=== PATIENT | male | born 1940 | race Caucasian/White ===

== ENCOUNTER 2019-03-12 14:01 | Emergency (ER) | payer MEDICARE, BC ==
[2019-03-12] MEDS ORDERED: Sodium Chloride 0.9% 10 ML Syringe FLUSH PRN (14:21)
--- NOTE | 2019-03-12 14:33 | EDM.PDOC ---
ED HPI GENERAL MEDICAL PROBLEM - General Chief Complaint: Chest Pain Stated Complaint: SHORTNESS OF BREATH Time Seen by Provider: 03/12/19 14:15 Source of Information: Reports: Patient, RN Notes Reviewed History Limitations: Reports: No Limitations - History of Present Illness INITIAL COMMENTS - FREE TEXT/NARRATIVE: Patient is a 78-year-old male who presents to the ED for the evaluation of choice of breath and chest discomfort. The patient states that he has an extensive cardiac history that includes an TX roughly 3-4 years ago, a valve replacement roughly 15 years ago, and one stent placed 3 weeks ago. The stent was placed in [place]. The patient states that he normally has issues with not being able to get enough air in. But has characterized issues with increasing dyspnea with exertion. He has to take many sigh breaths to feel like he is getting his air. He states that he is not having chest pain somewhat , but more of a chest discomfort. He states that he is always been sore on the sternotomy incision. He does not think he has an updated med list at this time. He is not sure if he is on amiodarone or not. 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 He notes that he was supposed to have a follow-up appointment with the doctor that did the stent, however he was back in [place] and did not make it to the follow-up appointment. He denies any chronic lung issues, and states he was never a smoker. He states that he just feels more fatigued than he normally does. Chest Pain Score (Numeric/FACES): 2 - Related Data Allergies Allergy/AdvReac Type Severity Reaction Status Date / Time No Known Allergies Allergy Verified 08/26/16 18:09 Home Meds: Home Meds Aspirin [Halfprin] 81 mg PO DAILY 02/20/15 [History] Clopidogrel [Plavix] 75 mg PO DAILY 05/30/16 [History] Isosorbide Mononitrate [Imdur] 60 mg PO DAILY 05/30/16 [History] azaTHIOprine [Imuran] 50 mg PO Q2D 05/30/16 [History] levETIRAcetam [Levetiracetam] 750 mg PO BEDTIME 05/30/16 [History] Q-Best 100 1 tab PO DAILY 08/16/16 [History] Sertraline [Zoloft] 100 mg PO BEDTIME 08/16/16 [History] Ultra Vit 75 1 tab PO DAILY 08/16/16 [History] atorvaSTATin [Lipitor] 10 mg PO BEDTIME 08/16/16 [History] Acetaminophen/oxyCODONE [Percocet 325-5 MG] 1 - 2 tab PO Q4H PRN #60 tablet [Rx] Docusate Sodium/Sennosides [Senna Plus] 2 tab PO BID PRN #30 tablet 08/21/16 [Rx ] Ranolazine [Ranexa] 500 mg PO BID #60 tab.er 08/21/16 [Rx] Tamsulosin [Flomax] 0.4 mg PO BEDTIME 08/26/16 [History] Ampicillin 2 gm IV Q4H 14 Days adv 09/01/16 [Rx] Dronabinol [Marinol] 2.5 mg PO 0700,1100,1600 #21 cap 09/01/16 [Rx] Gentamicin 80 mg IV Q8H 14 Days vial 09/01/16 [Rx] Lidocaine 5% [Lidoderm 5%] 700 mg TRDERM DAILY@1100 #7 patch 09/01/16 [Rx] Past Medical History HEENT History: Reports: None Cardiovascular History: Reports: CAD, Heart Valve Replacement, Hypertension, [place] 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 Has had bone marrow bx in the past. - Infectious Disease History Infectious Disease History: Reports: C-Difficile, Chicken Pox, Hepatitis C, Hepatitis non A,B,C, Mumps - Past Surgical History Cardiovascular Surgical History: Reports: Coronary Artery Stent, Valve Replacement GI Surgical History: Reports: Colonoscopy Musculoskeletal Surgical History: Reports: Hip Replacement Social & Family History - Family History Family Medical History: Noncontributory Cardiac: Reports: [place] GI: Reports: Hepatitis Musculoskeletal: Reports: Other (See Below) Other Musculoskeletal Family History: brother has amputation. unsure why - Tobacco Use Smoking Status *Q: Never Smoker - Caffeine Use Caffeine Use: Reports: Coffee - Recreational Drug Use Recreational Drug Use: No - Living Situation & Occupation Living situation: Reports: with Significant Other Occupation: Retired ED ROS GENERAL - Review of Systems Review Of Systems: See Below Constitutional: Reports: Fatigue. Denies: Fever, Chills HEENT: Reports: No Symptoms Respiratory: Reports: Shortness of Breath. Denies: Wheezing Cardiovascular: Reports: Chest Pain (chest discomfort), Dyspnea on Exertion Endocrine: Reports: No Symptoms GI/Abdominal: Reports: No Symptoms : Reports: No Symptoms Musculoskeletal: Reports: No Symptoms Skin: Reports: No Symptoms Neurological: Reports: No Symptoms Psychiatric: Reports: No Symptoms Hematologic/Lymphatic: Reports: No Symptoms Immunologic: Reports: No Symptoms ED EXAM, GENERAL - Physical Exam Exam: See Below Exam Limited By: No Limitations General Appearance: Alert, WD/WN, No Apparent Distress Eye Exam: Bilateral Eye: Normal Inspection Ears: Normal External Exam Nose: Normal Inspection Throat/Mouth: Normal Inspection, Normal Lips, Normal Teeth, Normal Gums, Normal Oropharynx, Normal Voice, No Airway Compromise Head: Atraumatic, Normocephalic Neck: Normal Inspection Respiratory/Chest: No Respiratory Distress, Decreased Breath Sounds. No: Rhonchi, Wheezing Cardiovascular: Normal Peripheral Pulses, Regular Rate, Rhythm, No Edema, No JVD , Systolic Murmur GI/Abdominal: Normal Bowel Sounds, Soft, Non-Tender, No Distention, No Mass Extremities: Normal Inspection, Normal Capillary Refill Neurological: Alert, Oriented, Normal Cognition, No Motor/Sensory Deficits Psychiatric: Normal Affect, Normal Mood Skin Exam: Warm, Dry, Intact, Normal Color, No Rash EKG INTERPRETATION EKG Date: 03/12/19 Time: 14:23 Rhythm: Other (sinus evens) Rate (Beats/Min): 58 [place]: Normal P-Wave: Present QRS: Normal ST-T: Normal QT: Normal EKG Interpretation Comments: J-point elevation and Q waves in inferior leads. But no ischemic changes and no T wave inversions. This was reviewed by myself and Dr. Rutledge. Course - Vital Signs Last Recorded V/S: Last Vital Signs Temp 98.6 F 03/12/19 14:13 Pulse 60 03/12/19 14:13 Resp 20 03/12/19 14:13 BP 124/63 03/12/19 14:13 Pulse Ox 98 03/12/19 14:13 - Orders/Labs/Meds Orders: Active Orders 24 hr Category Date Time Status EKG Documentation Completion [RC] STAT Care 03/12/19 14:20 Active Peripheral IV Care [RC] . DIRECTED Care 03/12/19 14:21 Active Sodium Chloride 0.9% [Saline Flush] Med 03/12/19 14:21 Active 10 ml FLUSH ASDIRECTED PRN Peripheral IV Insertion Adult [OM.PC] Routine Oth 03/12/19 14:21 Ordered Medication Orders Sodium Chloride (Saline Flush) 10 ml FLUSH ASDIRECTED PRN PRN Reason: Keep Vein Open Last Admin: 03/12/19 15:00 Dose: 10 ml Labs: Laboratory Tests 03/12/19 03/12/19 03/12/19 Range/Units 14:35 14:35 14:35 WBC 5.07 (4.23-9.07) K/mm3 RBC 3.97 L (4.63-6.08) M/mm3 Hgb 11.6 L D (13.7-17.5) gm/L Hct 34.1 L (40.1-51.0) % MCV 85.9 (79.0-92.2) fl MCH 29.2 (25.7-32.2) pg MCHC 34.0 (32.2-35.5) g/dl RDW Std Deviation 42.2 (35.1-43.9) fL Plt Count 157 L (163-337) K/mm3 MPV 11.1 (9.4-12.3) fl Neutrophils % (Manual) 69 H (40-60) % Band Neutrophils % 0 (0-10) % Lymphocytes % (Manual) 21 (20-40) % Atypical Lymphs % 0 % Monocytes % (Manual) 4 (2-10) % Eosinophils % (Manual) 4 (0.8-7.0) % Basophils % (Manual) 2 H (0.2-1.2) Platelet Estimate Adequate Plt Morphology Comment Normal Hypochromasia 1+ slight Anisocytosis 1+ sligh RBC Morph Comment Not Reportable PT 10.9 (9.5-12.1) SECONDS INR 1.00 APTT 30 (24-31) SECONDS Sodium 138 (136-145) mEq/L Potassium 3.7 (3.5-5.1) mEq/L Chloride 105 (98-107) mEq/L Carbon Dioxide 22 (21-32) mEq/L Anion Gap 14.7 (5-15) BUN 17 (7-18) mg/dL Creatinine 1.1 (0.7-1.3) mg/dL Est Cr Clr Drug Dosing 58.07 mL/min Estimated GFR (MDRD) > 60 (>60) mL/min BUN/Creatinine Ratio 15.5 (14-18) Glucose 136 H (83-115) mg/dL Calcium 8.3 L (8.5-10.1) mg/dL Magnesium 1.7 L (1.8-2.4) mg/dl Total Bilirubin 0.3 (0.2-1.0) mg/dL AST 14 L (15-37) U/L ALT 17 (16-63) U/L Alkaline Phosphatase 84 (46-116) U/L Troponin I < 0.017 (0.00-0.056) ng/mL NT-Pro-B Natriuret Pep (0-450) pg/mL Total Protein 6.3 L (6.4-8.2) g/dl Albumin 3.2 L (3.4-5.0) g/dl Globulin 3.1 gm/dL Albumin/Globulin Ratio 1.0 (1-2) 03/12/19 Range/Units 14:35 WBC (4.23-9.07) K/mm3 RBC (4.63-6.08) M/mm3 Hgb (13.7-17.5) gm/L Hct (40.1-51.0) % MCV (79.0-92.2) fl MCH (25.7-32.2) pg MCHC (32.2-35.5) g/dl RDW Std Deviation (35.1-43.9) fL Plt Count (163-337) K/mm3 MPV (9.4-12.3) fl Neutrophils % (Manual) (40-60) % Band Neutrophils % (0-10) % Lymphocytes % (Manual) (20-40) % Atypical Lymphs % % Monocytes % (Manual) (2-10) % Eosinophils % (Manual) (0.8-7.0) % Basophils % (Manual) (0.2-1.2) Platelet Estimate Plt Morphology Comment Hypochromasia Anisocytosis RBC Morph Comment PT (9.5-12.1) SECONDS INR APTT (24-31) SECONDS Sodium (136-145) mEq/L Potassium (3.5-5.1) mEq/L Chloride (98-107) mEq/L Carbon Dioxide (21-32) mEq/L Anion Gap (5-15) BUN (7-18) mg/dL Creatinine (0.7-1.3) mg/dL Est Cr Clr Drug Dosing mL/min Estimated GFR (MDRD) (>60) mL/min BUN/Creatinine Ratio (14-18) Glucose (83-115) mg/dL Calcium (8.5-10.1) mg/dL Magnesium (1.8-2.4) mg/dl Total Bilirubin (0.2-1.0) mg/dL AST (15-37) U/L ALT (16-63) U/L Alkaline Phosphatase (46-116) U/L Troponin I (0.00-0.056) ng/mL NT-Pro-B Natriuret Pep 134 (0-450) pg/mL Total Protein (6.4-8.2) g/dl Albumin (3.4-5.0) g/dl Globulin gm/dL Albumin/Globulin Ratio (1-2) Meds: Medications Generic Name Dose Route Start Last Admin Trade Name Freq PRN Reason Stop Dose Admin Sodium Chloride 10 ml 03/12/19 14:21 03/12/19 15:00 Saline Flush FLUSH 10 ml ASDIRECTED PRN Administration Keep Vein Open - Re-Assessments/Exams Free Text/Narrative Re-Assessment/Exam: 03/12/19 14:49 Patient is a 78 year old male who presents to the ED for evaluation of shortness of breath. Patient does have an extensive cardiac history. He does not have a current med list, we are trying to obtain one from his most recent cardiology visit. He states that he is on Plavix 75 mg daily, and an 81 mg baby aspirin daily. However he cannot remember any medications that he takes for the valve replacement if he was placed on any. Have ordered a chest x-ray, EKG, CBC, CMP, troponin, magnesium, PTT, PT/INR, and a BNP for further evaluation. 03/12/19 15:49 Patient's labs have returned, his troponin is undetectable, and labs are essentially within normal limits. The chest x-ray showed some mild emphysematous change, but no acute changes. This very well could be some of why he is having increasing shortness of breath. 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 03/12/19 16:03 Patient will be educated on albuterol inhaler use with a spacer by RT, for feelings of shortness of breath. His EKG was within normal limits for his cardiac history. Departure - Departure Time of Disposition: 16:08 Disposition: Home, Self-Care 01 Condition: Fair Clinical Impression: Shortness of breath at rest, Dyspnea on exertion Instructions: Shortness of Breath, Adult, [id number] Referrals: Jose J Parada MD [Primary Care Provider] - Forms: ED Department Discharge Additional Instructions: You have been evaluated in the ED today for your shortness of breath. Your cardiac workup was within normal limits. You are not experiencing an acute heart attack at today's visit. Your chest x-ray did demonstrate some mild emphysema-like changes. We were not able to obtain a med list from your fish hatchery supervisor to know for sure if the medication you are taking could be causing some of these changes. You have been provided with an albuterol inhaler, and demonstrated on its use. Please use this if you are experiencing shortness of breath. You may use this every 4 hours as needed for shortness of breath. It is highly recommended that you follow up with your fish hatchery supervisor tomorrow. Please call his office as early as you possibly can for further management. Please return to the ED if your symptoms should change or worsen. - My Orders Last 24 Hours: My Active Orders 03/12/19 14:20 EKG Documentation Completion [RC] STAT 03/12/19 14:21 Peripheral IV Care [RC] . DIRECTED Sodium Chloride 0.9% [Saline Flush] 10 ml FLUSH ASDIRECTED PRN Peripheral IV Insertion Adult [OM.PC] Routine - Assessment/Plan Last 24 Hours: My Active Orders 03/12/19 14:20 EKG Documentation Completion [RC] STAT 03/12/19 14:21 Peripheral IV Care [RC] . DIRECTED Sodium Chloride 0.9% [Saline Flush] 10 ml FLUSH ASDIRECTED PRN Peripheral IV Insertion Adult [OM.PC] Routine
--- NOTE | 2019-03-12 15:26 | CR ---
Chest: Two views of the chest are obtained. Comparison: Prior chest x-ray of 09/01/16. Heart size at the upper limits of normal. Mild tortuosity of the thoracic aorta is seen. Sternotomy wires are seen. Lungs show no acute appearing parenchymal change. Slight scarring is seen within the right lung base. Prosthetic heart valve is noted. Diaphragms are slightly flattened on the lateral view suggesting emphysematous change. Degenerative spurring is noted within the spine. Impression: 1. Probable emphysematous change. Other findings as noted above. Nothing acute is appreciated. Diagnostic code #2
[2019-03-12] MEDS ORDERED: Albuterol/Ipratropium 3.0-0.5 MG/3 ML Neb Soln NEB ONE (15:53)
[2019-03-12] MEDS ORDERED: Albuterol 6.7 GM Inhaler INH PRN (16:01)
[2019-03-12] MEDS ORDERED: Albuterol 6.7 GM Inhaler INH ONE (16:06)
[2019-03-12 17:05] VITALS: BP 126/65
== END 2019-03-12 17:00 | disposition home or self-care (01) ==
LOC: JD.ED 14:01
DX: R06.02 Shortness of breath (principal); I10 Essential (primary) hypertension; I25.10 Atherosclerotic heart disease of native coronary artery without angina pectoris; I25.2 Old myocardial infarction; Z79.82 Long term (current) use of aspirin; Z79.899 Other long term (current) drug therapy; Z95.5 Presence of coronary angioplasty implant and graft; Z86.2 Personal history of diseases of the blood and blood-forming organs and certain disorders involving the immune mechanism
CPT/HCPCS: 36415; 71046; 80053; 83735; 83880; 84484; 85007; 85027; 85610; 85730; 93005; 94640; 99285; A9270; 93010; 99283

== ENCOUNTER 2021-08-15 15:44 | Emergency (ER) | payer MEDICARE, BC ==
--- NOTE | 2021-08-15 16:33 | EDM.PDOC ---
ED HPI GENERAL MEDICAL PROBLEM - General Chief Complaint: Trauma Stated Complaint: RIGHT SIDE PAIN\HEAD LAC Time Seen by Provider: 08/15/21 16:10 - History of Present Illness INITIAL COMMENTS - FREE TEXT/NARRATIVE: 81-year-old male presents the emergency room after he got caught between a cattle gate and a cow. Patient states he got slammed into the gate twice by the cow. He has significant bleeding areas over his right druze right upper arm right knee and a few other scattered areas. The patient is on Plavix and aspirin he had no loss of consciousness does not really have a significant headache at this time. Patient is currently taking Plavix and aspirin he is got a bovine valve in place and vascular issues. He hurts all over his thigh areas bilaterally seem to hurt and he is developing some large what looks like hematomas. However he is ambulatory and standing when weightbearing is nontender what gets him the most is bumping the tender areas into things. Bilateral Leg Pain Score (Numeric/FACES): 9 - Related Data Allergies Allergy/AdvReac Type Severity Reaction Status Date / Time No Known Allergies Allergy Verified 08/15/21 16:29 Home Meds: Home Meds Aspirin [Halfprin] 81 mg PO DAILY 02/20/15 [History] Isosorbide Mononitrate [Imdur] 60 mg PO DAILY 05/30/16 [History] azaTHIOprine [Imuran] 50 mg PO Q2D 05/30/16 [History] levETIRAcetam [Levetiracetam] 750 mg PO BID 05/30/16 [History] Sertraline [Zoloft] 100 mg PO BID 08/16/16 [History] atorvaSTATin [Lipitor] 10 mg PO BEDTIME 08/16/16 [History] Tamsulosin [Flomax] 0.4 mg PO BEDTIME 08/26/16 [History] Nitroglycerin 0.4 mg SL ASDIRECTED PRN 03/12/19 [History] Hydrocodone/Acetaminophen [HYDROcodone-Acetaminophen 5-325 MG] 1 each PO ASDIRECTED PRN #15 tab 08/15/21 [Rx] Past Medical History HEENT History: Reports: None Cardiovascular History: Reports: CAD, Heart Valve Replacement, Hypertension, [place] 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 Has had bone marrow bx in the past. - Infectious Disease History Infectious Disease History: Reports: C-Difficile, Chicken Pox, Hepatitis C, Hepatitis non A,B,C, Mumps - Past Surgical History Cardiovascular Surgical History: Reports: Coronary Artery Stent, Valve Replacement GI Surgical History: Reports: Colonoscopy Musculoskeletal Surgical History: Reports: Hip Replacement Social & Family History - Family History Family Medical History: No Pertinent Family History Cardiac: Reports: [place] GI: Reports: Hepatitis Musculoskeletal: Reports: Other (See Below) Other Musculoskeletal Family History: brother has amputation. unsure why - Caffeine Use Caffeine Use: Reports: Coffee - Living Situation & Occupation Living situation: Reports: with Significant Other Occupation: Retired Review of Systems - Review of Systems Review Of Systems: See Below Constitutional: Reports: No Symptoms Eyes: Reports: No Symptoms Ears: Reports: No Symptoms Nose: Reports: No Symptoms Mouth/Throat: Reports: No Symptoms Respiratory: Reports: No Symptoms Cardiovascular: Reports: No Symptoms GI/Abdominal: Reports: No Symptoms Genitourinary: Reports: No Symptoms Musculoskeletal: Reports: Other (He has full function of his extremities however has skin tear over his right upper arm and open abrasion over his right patella and a 2 cm laceration over his right druze) Skin: Reports: Bruising, Wound (Laceration right face above the eye) Neurological: Reports: No Symptoms ED EXAM, GENERAL - Physical Exam Exam: See Below Exam Limited By: No Limitations General Appearance: Alert, No Apparent Distress Eye Exam: Bilateral Eye: Normal Inspection Ears: Normal External Exam, Normal Canal, Hearing Grossly Normal, Normal TMs Nose: Normal Inspection, Normal Mucosa, No Blood Throat/Mouth: Normal Inspection, Normal Lips, Normal Gums, Normal Oropharynx, Normal Voice Head: Other (Hematoma developing over the right lateral forehead) Neck: Normal Inspection, Limited Range of Motion (He has some tenderness with range of motion seems to be new). No: Non-Tender, Tender Midline Respiratory/Chest: No Respiratory Distress, Lungs Clear, Normal Breath Sounds Cardiovascular: Regular Rate, Rhythm, No Edema, No Gallop, No JVD GI/Abdominal: Normal Bowel Sounds, Soft, Non-Tender Back Exam: Normal Inspection. No: CVA Tenderness (L), CVA Tenderness (R) Extremities: Normal Inspection, Normal Range of Motion, Non-Tender Neurological: Alert, Oriented, Normal Cognition ED TRAUMA PROCEDURES - Laceration/Wound Repair Right Head Lac/Wound Length In cm: 3 Appearance: Subcutaneous, Stellate, Irregular Anesthetic Type: Local Local Anesthesia - Lidocaine (Xylocaine): 1% Plain Local Anesthetic Volume: 2cc Skin Prep: Saline Exploration/Debridement/Repair: Wound Explored, Explored to Base Closed With: Sutures Suture Size: 3-0 # of Sutures: 3 Suture Type: Nylon Tetanus Status Addressed: Yes (Will be updated) Complications: No Progress/Comments: 3 simple stitches placed with 3-0 nylon thicker material is used as he has fairly thin skin. Course - Vital Signs Last Recorded V/S: Last Vital Signs Temp 36.6 C 08/15/21 16:36 Pulse 62 08/15/21 18:29 Resp 16 08/15/21 18:29 BP 164/70 H 08/15/21 18:29 Pulse Ox 100 08/15/21 18:29 - Orders/Labs/Meds Orders: Active Orders 24 hr Category Date Time Status Cervical Spine wo Cont [CT] Stat Exams 08/15/21 16:31 Taken Chest Abdomen Pelvis w Cont [CT] Stat Exams 08/15/21 16:31 Taken Head wo Cont [CT] Stat Exams 08/15/21 16:31 Taken UA RFX JORDANA AND CULT IF INDIC [URIN] Stat Lab 08/15/21 18:25 Received Labs: Laboratory Tests 08/15/21 08/15/21 08/15/21 Range/Units 16:40 16:40 16:40 WBC 8.88 (4.23-9.07) K/mm3 RBC 4.21 L (4.63-6.08) M/mm3 Hgb 12.6 L (13.7-17.5) gm/dl Hct 37.8 L (40.1-51.0) % MCV 89.8 D (79.0-92.2) fl MCH 29.9 (25.7-32.2) pg MCHC 33.3 (32.2-35.5) g/dl RDW Std Deviation 43.7 (35.1-43.9) fL Plt Count 106 L (163-337) K/mm3 MPV 10.4 (9.4-12.3) fl Neut % (Auto) 86.0 H (34.0-67.9) % Lymph % (Auto) 7.1 L (21.8-53.1) % [place] % (Auto) 5.1 L (5.3-12.2) % Eos % (Auto) 1.2 (0.8-7.0) Baso % (Auto) 0.1 (0.1-1.2) % Neut # (Auto) 7.64 H (1.78-5.38) K/mm3 Lymph # (Auto) 0.63 L (1.32-3.57) K/mm3 [place] # (Auto) 0.45 (0.30-0.82) K/mm3 Eos # (Auto) 0.11 (0.04-0.54) K/mm3 Baso # (Auto) 0.01 (0.01-0.08) K/mm3 PT 10.5 (9.7-12.0) SECONDS INR 0.94 APTT 25.9 (21.7-31.4) SECONDS Sodium 143 (136-145) mEq/L Potassium 4.5 (3.5-5.1) mEq/L Chloride 107 (98-107) mEq/L Carbon Dioxide 28 (21-32) mEq/L Anion Gap 12.5 (5-15) BUN 23 H (7-18) mg/dL Creatinine 1.0 (0.7-1.3) mg/dL Est Cr Clr Drug Dosing 60.83 mL/min Estimated GFR (MDRD) > 60 (>60) mL/min BUN/Creatinine Ratio 23.0 H (14-18) Glucose 92 (70-99) mg/dL Calcium 8.3 L (8.5-10.1) mg/dL Total Bilirubin 0.4 (0.2-1.0) mg/dL AST 22 (15-37) U/L ALT 22 (16-63) U/L Alkaline Phosphatase 97 (46-116) U/L Total Protein 6.6 (6.4-8.2) g/dl Albumin 3.4 (3.4-5.0) g/dl Globulin 3.2 gm/dL Albumin/Globulin Ratio 1.1 (1-2) Meds: Medications Discontinued Medications Generic Name Dose Route Start Last Admin Trade Name Beulah PRN Reason Stop Dose Admin Fentanyl 50 mcg 08/15/21 17:36 08/15/21 17:42 Fentanyl 100 Mcg/2 Ml Sdv IVPUSH 08/15/21 17:37 50 mcg ONETIME STA Administration Sodium Chloride 500 mls @ 999 mls/hr 08/15/21 16:34 08/15/21 17:01 Normal Saline IV 08/15/21 17:04 999 mls/hr .BOLUS ONE Administration - Re-Assessments/Exams Free Text/Narrative Re-Assessment/Exam: 08/15/21 18:39 CT of his head shows no acute cranial abnormalities C-spine shows no acute fracture dislocation or ab normality. In the right lung upper lobe he has a mass of concern that will need surveillance. I did discuss this with the patient. Chest CT reveals the same with recommended surveillance within [address] is negative for acute interabdominal or pelvic injuries. The patient has some developing hematomas in his thigh I did not x- ray his lower extremities as he is ambulatory without too much difficulty when he bumps these tender areas it hurts so patient has multiple skin tears these were reapproximated and Steri-Stripped over his right knee he is missing a few layers of skin over the central area and about a 11 or 12 mm semicircular area will leave this open it will granulate in. The laceration over his right druze over a small hematoma will get primary repair. Departure - Departure Time of Disposition: 19:11 Disposition: Home, Self-Care 01 Clinical Impression: Facial laceration, Contusion of right upper arm, Abrasion of right knee, Head injury, Contusion of thigh, left, Contusion of thigh, right, Mass of upper lobe of right lung - Discharge Information Referrals: PCP,None [Ordering Only Provider] - Forms: ED Department Discharge Additional Instructions: Return to the emergency room with any questions problems or concerning symptoms. Follow-up with your regular physician Dr. Parada for suture removal in 10 days. Discussed this mass seen on the CAT scans of your right lung in the upper lobe and discussed the recommended surveillance. I sent a prescription for hydrocodone to your pharmacy. Take 1 every 6-8 hours as needed. We have given you 1 now and I will send you home with 1 to get it through the night. This pain medication can cause constipation so if you use it on a regular basis use a good stool softener with it. Do not drive or return to work within 12 hours of taking the pain medication. Sepsis Event Note (ED) - Focused Exam Vital Signs: Vital Signs Temp Pulse Resp BP Pulse Ox 08/15/21 18:29 62 16 164/70 H 100 08/15/21 16:36 36.6 C 63 20 161/67 H 100 08/15/21 16:25 36.7 C 64 20 157/100 H 100 - My Orders Last 24 Hours: My Active Orders 08/15/21 16:31 Cervical Spine wo Cont [CT] Stat Chest Abdomen Pelvis w Cont [CT] Stat Head wo Cont [CT] Stat 08/15/21 18:25 UA RFX JORDANA AND CULT IF INDIC [URIN] Stat - Assessment/Plan Last 24 Hours: My Active Orders 08/15/21 16:31 Cervical Spine wo Cont [CT] Stat Chest Abdomen Pelvis w Cont [CT] Stat Head wo Cont [CT] Stat 08/15/21 18:25 UA RFX JORDANA AND CULT IF INDIC [URIN] Stat
[2021-08-15] MEDS ORDERED: Sodium Chloride 0.9% 500 ML IV ONE (16:34)
[2021-08-15] MEDS ORDERED: fentaNYL 100 MCG/2 ML SDV IVPUSH STA (17:36)
[2021-08-15 18:30] VITALS: BP 164/70; PULSE 62
[2021-08-15] MEDS ORDERED: Lidocaine 1% 10 ML MDV INJECT ONE (18:42)
[2021-08-15] MEDS ORDERED: Diphtheria,Pertussis(Acell),Tetanus Vaccine 0.5 ML Syringe IM ONE (19:09)
[2021-08-15] MEDS ORDERED: Acetaminophen/HYDROcodone 325-5 MG Tab PO ONE (19:20)
[2021-08-15] MEDS ORDERED: Ondansetron 4 MG/2 ML SDV IVPUSH ONE (19:39)
--- NOTE | 2021-08-16 06:46 | CT ---
Head CT Technique: Multiple axial sections through the brain were obtained. Intravenous contrast was not utilized. Reconstructed coronal and sagittal images were obtained. Comparison: Previous head CT study of 08/16/16. Findings: Ventricles along with basal cisterns and sulci over the convexities are mildly prominent. Minimal diminished density is noted within the periventricular white matter. No other abnormal parenchymal densities are seen. No evidence of intracranial hemorrhage is seen. No midline shift or mass-effect is seen. Mild soft tissue swelling is seen within the posterior right frontal scalp. Atherosclerotic calcification is seen within the carotid siphon. Visualized mastoid sinuses and paranasal sinuses show nothing acute. No acute calvarial abnormality is appreciated. Impression: 1. Soft tissue swelling within the posterior right frontal scalp. 2. Mild senescent change as noted above. 3. No acute intracranial abnormality is seen. Diagnostic code #2 I agree with preliminary report from [facility], finalized on 08/15/21, 6:25 PM [employer], code 1
--- NOTE | 2021-08-16 06:46 | CT ---
CT chest Technique: Multiple axial sections were obtained from above the lung apices inferiorly through the lung bases. Intravenous contrast was utilized. Reconstructed coronal and sagittal images were obtained. Comparison: Prior CT chest of 08/26/16 and 11/18/15. Findings: Thoracic aorta shows atherosclerotic calcification with no aneurysm. Mediastinum shows no adenopathy. Prosthetic aortic valve is seen. Coronary artery calcification is noted. Cardiomegaly with no pericardial thickening seen. Nodule is seen within the right upper lung measuring about 1.0 cm. Very minimal pleural effusion is seen within the right lung base. Slight parenchymal densities are noted within both lung bases most compatible with areas of scarring. Lungs otherwise are clear. Bone window settings were reviewed which show scattered endplate spurring within the spine. Sternotomy wires are noted. No acute osseous abnormality is appreciated. Impression: 1. 1.0 cm nodule within the right upper lung. This represents an interval change from prior study from 2016. Biopsy could be obtained of this nodule. Alternatively PET/CT could be obtained. 2. Small pleural effusion within the right lung base with chronic scarring within both lung bases. 3. Previous sternotomy for prosthetic aortic valve. Diagnostic code #9 I agree with preliminary report from [facility], finalized on 08/15/21, 6:[address] abdomen and pelvis Technique: Multiple axial sections were obtained from above the dome of the diaphragm inferiorly through the pubic symphysis. Intravenous and the contrast was utilized. No oral contrast has been given. Delayed images were also obtained through the abdomen and pelvis. Reconstructed coronal and sagittal images were obtained. Comparison: Prior CT abdomen and pelvis study of 08/26/16. Findings: Liver contains no focal abnormality. Several small calcified gallstones are seen within the gallbladder. Spleen appears normal in size. Adrenal glands show no nodule. Pancreas shows no discrete abnormality. Kidneys show symmetric contrast enhancement. Small parapelvic cyst is noted within the left kidney. Calcification is noted within the right renal pelvis measuring approximately 7-8 mm. Delayed images show contrast excretion into both ureters as well as within the bladder. Abdominal aorta shows atherosclerotic calcification without aneurysm which extends into the iliac vessels. No retroperitoneal adenopathy is seen. No mesenteric abnormalities are seen. No pelvic mass or adenopathy is seen. Right hip prosthesis is noted which causes some artifact. Appendix is not visualized with certainty. Bone window settings were reviewed which show scattered endplate spurring within the spine. Vacuum phenomena is seen within the L4-5 disc. Calcification is seen within the disc at L2-3. No acute osseous abnormality is appreciated. Old fractures are noted within the superior and inferior left pubic rami within the pelvis. Impression: 1. Incidental parapelvic cyst within the left kidney. Right hip prosthesis is noted. Degenerative change is seen within the spine. 2. Small calcified gallstones within the gallbladder. 3. Nothing acute is appreciated on CT study of the abdomen and pelvis. Diagnostic code #2 I agree with preliminary report from [facility], finalized on 08/15/21, 6:37 PM IRRIGATOR HEAD, code 1
--- NOTE | 2021-08-16 06:57 | CT ---
CT cervical spine Technique: Multiple axial sections were obtained from above C1 inferiorly to the top of T5. Reconstructed coronal and sagittal images were obtained. Comparison: Prior cervical spine CT study of 08/16/16. Findings: Diffuse posterior disc space narrowing is seen throughout the cervical spine. Posterior osteophytes are noted at C3-4 and C5-6. Diffuse anterior osteophytes are seen throughout the cervical and upper thoracic spine. Mild degenerative change scattered throughout the apophyseal joints is seen. No bony central canal stenosis is seen. Fairly severe narrowing is noted at C3-4 on the left side. Mild narrowing is noted at C4-5 on the right side. Moderate to severe narrowing is seen on the left side at C5-6. Other neural foramina are felt to be fairly well patent. Scattered degenerative change is seen throughout the uncovertebral joints. No fracture is appreciated. No abnormal subluxation is seen. Lung window settings were reviewed and show a 1.0 cm nodule within the right upper lung which is an interval change from older chest CTs. Impression: 1. Degenerative change as noted above. Nodule within the right upper lung which is an interval change from older CT studies. 2. Nothing acute is appreciated on CT study of the cervical spine. Diagnostic code #9 I agree with preliminary report from [facility], finalized on 08/15/21, 6:23 PM CDT, code 1
== END 2021-08-15 20:29 | disposition home or self-care (01) ==
LOC: JD.ED 15:44
DX: S09.90XA Unspecified injury of head, initial encounter (principal); S01.81XA Laceration without foreign body of other part of head, initial encounter; S40.021A Contusion of right upper arm, initial encounter; S70.12XA Contusion of left thigh, initial encounter; S70.11XA Contusion of right thigh, initial encounter; S80.211A Abrasion, right knee, initial encounter; R91.8 Other nonspecific abnormal finding of lung field; I25.10 Atherosclerotic heart disease of native coronary artery without angina pectoris; I10 Essential (primary) hypertension; I25.2 Old myocardial infarction; N40.1 Benign prostatic hyperplasia with lower urinary tract symptoms; R33.8 Other retention of urine; R56.9 Unspecified convulsions; M19.90 Unspecified osteoarthritis, unspecified site; Z79.02 Long term (current) use of antithrombotics/antiplatelets; Z79.82 Long term (current) use of aspirin; Z79.899 Other long term (current) drug therapy; W23.0XXA Caught, crushed, jammed, or pinched between moving objects, initial encounter
CPT/HCPCS: 12013; 36415; 70450; 71260; 72125; 74177; 80053; 81003; 85025; 85610; 85730; 96374; 96375; 99284; A9270; J2405; J3010; J7030; 99285

== ENCOUNTER 2022-07-19 14:53 | Emergency (ER) | payer MEDICARE, BC ==
[2022-07-19] MEDS ORDERED: HYDROmorphone 0.5 MG/0.5 ML Syringe IM ONE (15:29)
[2022-07-19] MEDS ORDERED: Lidocaine 1% 10 ML MDV INJECT ONE (15:29)
[2022-07-19 17:06] VITALS: BP 131/51; PULSE 60
== END 2022-07-19 17:06 | disposition home or self-care (01) ==
LOC: JD.ED 14:53
DX: S61.211A Laceration without foreign body of left index finger without damage to nail, initial encounter (principal); S67.191A Crushing injury of left index finger, initial encounter; I25.10 Atherosclerotic heart disease of native coronary artery without angina pectoris; I10 Essential (primary) hypertension; Z79.82 Long term (current) use of aspirin; Z79.899 Other long term (current) drug therapy; W26.8XXA Contact with other sharp object(s), not elsewhere classified, initial encounter
CPT/HCPCS: 12001; 73130; 96372; 99283; J1170; 99284

== ENCOUNTER 2022-11-27 15:06 | Emergency (ER) | payer MEDICARE, BC ==
[2022-11-27] MEDS ORDERED: Sodium Chloride 0.9% 10 ML Syringe FLUSH PRN (15:20)
[2022-11-27 16:04] LABS: ESTIMATED GFR 61 mL/min (>60)
[2022-11-27] MEDS ORDERED: Sodium Chloride 0.9% 500 ML IV ONE (17:39)
[2022-11-27 22:44] VITALS: BP 162/70; PULSE 42
== END 2022-11-27 21:50 ==
LOC: JD.ED 15:06
DX: I49.8 Other specified cardiac arrhythmias (principal); R00.8 Other abnormalities of heart beat; R55 Syncope and collapse; I25.10 Atherosclerotic heart disease of native coronary artery without angina pectoris; I10 Essential (primary) hypertension; I25.2 Old myocardial infarction; N40.0 Benign prostatic hyperplasia without lower urinary tract symptoms; R33.8 Other retention of urine; R56.9 Unspecified convulsions; M19.90 Unspecified osteoarthritis, unspecified site; Z95.2 Presence of prosthetic heart valve; Z79.82 Long term (current) use of aspirin; Z79.899 Other long term (current) drug therapy; Z20.822 Contact with and (suspected) exposure to COVID-19
CPT/HCPCS: 36415; 70450; 71045; 80053; 82947; 83735; 83880; 84484; 85025; 85610; 85730; 86140; 93005; 96360; 99284; J3490; J7030; U0002

== ENCOUNTER 2022-12-20 12:01 | Emergency (ER) | payer MEDICARE, BC ==
[2022-12-20 14:02] VITALS: BP 170/59; PULSE 62
== END 2022-12-20 13:59 | disposition home or self-care (01) ==
LOC: JD.ED 12:01
DX: S51.812A Laceration without foreign body of left forearm, initial encounter (principal); S00.03XA Contusion of scalp, initial encounter; I25.10 Atherosclerotic heart disease of native coronary artery without angina pectoris; I10 Essential (primary) hypertension; I25.2 Old myocardial infarction; M19.90 Unspecified osteoarthritis, unspecified site; Z79.82 Long term (current) use of aspirin; Z79.899 Other long term (current) drug therapy; W50.0XXA Accidental hit or strike by another person, initial encounter
CPT/HCPCS: 70450; 70450-26; 73080-26-LT; 73080-LT; 99283; 99284

== ENCOUNTER 2023-01-10 17:26 | Emergency (ER) | payer MEDICARE, BC ==
[2023-01-10] MEDS ORDERED: Sodium Chloride 0.9% 10 ML Syringe FLUSH PRN (17:40)
[2023-01-10] MEDS ORDERED: Sodium Chloride 0.9% 1,000 ML IV ONE (17:56)
[2023-01-10 20:20] VITALS: BP 180/72; PULSE 65
== END 2023-01-10 20:16 | disposition home or self-care (01) ==
LOC: JD.ED 17:26
DX: R42 Dizziness and giddiness (principal); R94.6 Abnormal results of thyroid function studies; I25.10 Atherosclerotic heart disease of native coronary artery without angina pectoris; I10 Essential (primary) hypertension; I25.2 Old myocardial infarction; N40.0 Benign prostatic hyperplasia without lower urinary tract symptoms; Z79.899 Other long term (current) drug therapy; Z79.82 Long term (current) use of aspirin
CPT/HCPCS: 36415; 71045; 80053; 83735; 83880; 84443; 84484; 85025; 85379; 85610; 85730; 93005; 96360; 99285; J3490; J7030; 93010; 99284

== ENCOUNTER 2023-06-26 13:28 | Emergency (ER) | payer MEDICARE, BC ==
[2023-06-26] MEDS ORDERED: Ondansetron 4 MG/2 ML SDV IVPUSH ONE (13:47)
[2023-06-26] MEDS ORDERED: Sodium Chloride 0.9% 10 ML Syringe FLUSH PRN (13:47)
[2023-06-26 13:58] LABS: BASOPHILS ABSOLUTE AUTO 0.1 K/mm3 (0.0-0.2); BASOPHILS PERCENT AUTO 0.8 % (0.0-1.0); EOSINOPHILS ABSOLUTE AUTO 0.2 K/mm3 (0.0-0.4); EOSINOPHILS PERCENT AUTO 2.6 % (0.0-6.0); HEMATOCRIT 41.7 % (42.0-52.0); HEMOGLOBIN 14.4 gm/dl (14.0-18.0); IMMATURE GRAN ABSOLUTE AUTO 0.04 K/mm3 (0.00-0.05); IMMATURE GRAN PERCENT AUTO 0.6 % (0.0-0.4); LYMPHOCYTES ABSOLUTE AUTO 0.9 K/mm3 (1.0-4.8); LYMPHOCYTES PERCENT AUTO 12.8 % (24.0-44.0); MEAN CORPUSCULAR HEMOGLOBIN 30.5 pg (28.0-32.0); MEAN CORPUSCULAR HGB CONC 34.5 g/dl (32.0-36.0); MEAN CORPUSCULAR VOLUME 88.3 fl (83.0-99.0); MEAN PLATELET VOLUME 11.2 fl (9.4-12.4); MONOCYTES ABSOLUTE AUTO 0.6 K/mm3 (0.0-0.8); MONOCYTES PERCENT AUTO 8.3 % (0.0-8.0); NEUTROPHILS ABSOLUTE AUTO 5.4 K/mm3 (1.8-7.7); NEUTROPHILS PERCENT AUTO 74.9 % (41.0-71.0); PLATELET COUNT,PLT 129 K/mm3 (150-400); RED BLOOD CELL COUNT 4.72 M/mm3 (4.52-5.90); WHITE BLOOD CELL COUNT,WBC 7.26 K/mm3 (3.9-11.3)
[2023-06-26] MEDS ORDERED: Sodium Chloride 0.9% 1,000 ML IV SCH (14:00)
[2023-06-26 14:22] LABS: PROTHROMBIN TIME 10.7 SECONDS (9.7-12.0)
[2023-06-26 14:23] LABS: PTT,PARTIAL THROMBOPLSTIN TIME 27.3 SECONDS (21.7-31.4)
[2023-06-26 14:24] LABS: ALANINE AMINOTRANSFERASE,ALT 39 U/L (16-63); ALBUMIN 3.7 g/dl (3.4-5.0); ALKALINE PHOSPHATASE 90 U/L (46-116); ANION GAP 13.1 (5-15); ASPARTATE AMNIOTRANSFERASE,AST 30 U/L (15-37); BILIRUBIN TOTAL 0.5 mg/dL (0.2-1.0); BLOOD UREA NITROGEN,BUN 23 mg/dL (7-18); BUN/CREATININE RATIO 15.3 (14-18); C-REACTIVE PROTEIN <0.2 mg/dL (<1.0); CARBON DIOXIDE,CO2 27 mEq/L (21-32); CHLORIDE,CL 105 mEq/L (98-107); CREATININE 1.5 mg/dL (0.7-1.3); EST CRCL DRUG DOSING (CG) 39.88 mL/min; ESTIMATED GFR 46 mL/min (>60); GLUCOSE RANDOM 101 mg/dL (70-99); LIPASE 122 U/L (73-393); MAGNESIUM 1.7 mg/dL (1.8-2.4); POTASSIUM,K 4.1 mEq/L (3.5-5.1); PROTEIN TOTAL,TP 7.5 g/dl (6.4-8.2); SODIUM,NA 141 mEq/L (136-145); TROPONIN I HIGH SENSITIVITY 9 pg/mL (<=76)
[2023-06-26 15:27] LABS: CORONAVIRUS COVID-19 NAA NEGATIVE (NEGATIVE); INFLUENZA A NAA NEGATIVE (NEGATIVE); RESPIRATORY SYNCYTIAL VIR NAA NEGATIVE (NEGATIVE)
[2023-06-26 15:45] LABS: APPEARANCE,URINE CLEAR (Clear); BILIRUBIN,URINE NEGATIVE (Negative); COLOR,URINE YELLOW (Yellow); GLUCOSE,URINE NEGATIVE (Negative); KETONES,URINE NEGATIVE (Negative); LEUKOCYTE ESTERASE,URINE NEGATIVE (Negative); NITRITE,URINE NEGATIVE (Negative); OCCULT BLOOD,URINE NEGATIVE (Negative); PROTEIN,URINE NEGATIVE (Negative); UROBILINOGEN,URINE 0.2 (0.2-1.0)
[2023-06-26 15:53] LABS: BACTERIA,URINE FEW /hpf (FEW); MUCUS,URINE FEW /hpf (FEW); RBC,URINE 0-5 /hpf (0-5); SQUAMOUS EPITHELIAL CELLS,UR 0-5 /hpf (0-5); WBC,URINE 0-5 /hpf (0-5)
[2023-06-26 19:34] VITALS: BP 152/76; PULSE 61
== END 2023-06-26 17:00 | disposition home or self-care (01) ==
LOC: JD.ED 13:28
DX: K52.9 Noninfective gastroenteritis and colitis, unspecified (principal); R53.1 Weakness; I10 Essential (primary) hypertension; I25.2 Old myocardial infarction; Z79.82 Long term (current) use of aspirin; Z79.899 Other long term (current) drug therapy; Z20.822 Contact with and (suspected) exposure to COVID-19
CPT/HCPCS: 0241U; 36415; 70450; 71045; 80053; 81001; 83605; 83690; 83735; 84484; 85025; 85610; 85730; 86140; 93005; 96361; 96374; 99285; J2405; J7030; 93010; 99284

== ENCOUNTER 2023-07-03 10:16 | Observation (INO) | payer MEDICARE, BC ==
[2023-07-03 11:46] LABS: BASOPHILS PERCENT AUTO 0.6 % (0.0-1.0); EOSINOPHILS PERCENT AUTO 0.6 % (0.0-6.0); HEMATOCRIT 42.3 % (42.0-52.0); HEMOGLOBIN 14.3 gm/dl (14.0-18.0); IMMATURE GRAN ABSOLUTE AUTO 0.03 K/mm3 (0.00-0.05); IMMATURE GRAN PERCENT AUTO 0.4 % (0.0-0.4); LYMPHOCYTES ABSOLUTE AUTO 0.6 K/mm3 (1.0-4.8); LYMPHOCYTES PERCENT AUTO 8.7 % (24.0-44.0); MEAN CORPUSCULAR HEMOGLOBIN 30.6 pg (28.0-32.0); MEAN CORPUSCULAR HGB CONC 33.8 g/dl (32.0-36.0); MEAN CORPUSCULAR VOLUME 90.4 fl (83.0-99.0); MEAN PLATELET VOLUME 10.2 fl (9.4-12.4); MONOCYTES ABSOLUTE AUTO 0.6 K/mm3 (0.0-0.8); MONOCYTES PERCENT AUTO 8.2 % (0.0-8.0); NEUTROPHILS ABSOLUTE AUTO 5.5 K/mm3 (1.8-7.7); NEUTROPHILS PERCENT AUTO 81.5 % (41.0-71.0); PLATELET COUNT,PLT 119 K/mm3 (150-400); RED BLOOD CELL COUNT 4.68 M/mm3 (4.52-5.90); WHITE BLOOD CELL COUNT,WBC 6.69 K/mm3 (3.9-11.3)
[2023-07-03] MEDS ORDERED: Lactated Ringers 1,000 ML IV ONE (11:47)
[2023-07-03] MEDS ORDERED: Morphine 4 MG/ML Syringe IVPUSH ONE (11:47)
[2023-07-03 12:02] LABS: INR 1.02; PROTHROMBIN TIME 10.9 SECONDS (9.7-12.0)
[2023-07-03 12:15] LABS: A/G RATIO 0.9 (1-2); ALBUMIN 3.6 g/dl (3.4-5.0); BILIRUBIN TOTAL 0.7 mg/dL (0.2-1.0); BUN/CREATININE RATIO 13.8 (14-18); CALCIUM 8.8 mg/dL (8.5-10.1); CREATININE 1.6 mg/dL (0.7-1.3); EST CRCL DRUG DOSING (CG) 38.35 mL/min; PROTEIN TOTAL,TP 7.5 g/dl (6.4-8.2)
[2023-07-03 12:59] LABS: APPEARANCE,URINE CLEAR (Clear); BILIRUBIN,URINE NEGATIVE (Negative); COLOR,URINE YELLOW (Yellow); GLUCOSE,URINE NEGATIVE (Negative); KETONES,URINE NEGATIVE (Negative); LEUKOCYTE ESTERASE,URINE NEGATIVE (Negative); NITRITE,URINE NEGATIVE (Negative); OCCULT BLOOD,URINE NEGATIVE (Negative); PH,URINE 6.5 (5.0-8.0); PROTEIN,URINE 1+ (Negative); UROBILINOGEN,URINE 0.2 (0.2-1.0)
[2023-07-03 13:15] LABS: BACTERIA,URINE FEW /hpf (FEW); EPITHELIAL CELLS,URINE 0-5 /hpf (0-5); HYALINE CASTS,URINE 0-5 /lpf (0-5); MUCUS,URINE FEW /hpf (FEW); RBC,URINE 0-5 /hpf (0-5); WBC,URINE 0-5 /hpf (0-5)
[2023-07-03 13:18] VITALS: PULSE 53
[2023-07-03] MEDS ORDERED: Magnesium Sulfate/Water 2 GM in Premix Bag 1 BAG IV ONE (14:41)
[2023-07-03] MEDS ORDERED: Ondansetron 4 MG Tab.DIS PO PRN (15:32)
[2023-07-03] MEDS ORDERED: Docusate Sodium 100 MG Cap PO PRN (15:32)
[2023-07-03] MEDS ORDERED: Ondansetron 4 MG/2 ML SDV IV PRN (15:32)
[2023-07-03] MEDS ORDERED: Acetaminophen 325 MG Tab PO PRN (15:32)
[2023-07-03] MEDS: traMADol 50 MG Tab PO PRN (16:27)
[2023-07-03] MEDS ORDERED: Nitroglycerin 0.4 MG Tab.SL SL PRN (18:43)
[2023-07-03] MEDS ORDERED: atorvaSTATin 40 MG Tab PO SCH (21:00)
[2023-07-03] MEDS ORDERED: Apixaban 5 MG Tab PO SCH (21:00)
[2023-07-04] MEDS: traMADol 50 MG Tab PO PRN (00:06)
[2023-07-04 08:24] VITALS: BP 156/75
[2023-07-04] MEDS ORDERED: Sertraline 50 MG Tab **OWN MED PO SCH (09:00)
[2023-07-04] MEDS ORDERED: Apixaban 5 MG Tab **OWN MED PO SCH (09:00)
[2023-07-04] MEDS ORDERED: Amiodarone 200 MG Tab **PTOM PO SCH (09:00)
[2023-07-04] MEDS ORDERED: Aspirin 81 MG Tab.EC PO SCH (09:00)
[2023-07-04] MEDS ORDERED: AZATHIOPRINE 50 MG PO SCH (09:00)
[2023-07-04] MEDS ORDERED: amLODIPine 5 MG Tab **PTOM PO SCH (09:00)
[2023-07-04] MEDS ORDERED: Isosorbide Mononitrate 60 MG Tab.ER **PTOM PO SCH (09:00)
[2023-07-04] MEDS ORDERED: Sertraline 50 MG Tab PO SCH (09:00)
[2023-07-04] MEDS ORDERED: Sennosides/Docusate Sodium 50-8.6 MG Tab PO ONE (09:04)
[2023-07-04] MEDS ORDERED: Polyethylene Glycol 3350 Powder 17 GM Packet PO ONE (09:04)
[2023-07-04] MEDS ORDERED: Bisacodyl 10 MG Supp RECTAL ONE (13:36)
[2023-07-04] MEDS ORDERED: atorvaSTATin 40 MG Tab **OWN MED PO SCH (21:00)
== END 2023-07-04 15:55 | disposition home or self-care (01) ==
LOC: JD.ED 10:16 → JD.MS 15:32
PROVIDERS: ADMIT Hospitalist; ATTEND Hospitalist
DX: M25.551 Pain in right hip (principal); R53.1 Weakness; R94.31 Abnormal electrocardiogram [ECG] [EKG]; I25.10 Atherosclerotic heart disease of native coronary artery without angina pectoris; I12.9 Hypertensive chronic kidney disease with stage 1 through stage 4 chronic kidney disease, or unspecified chronic kidney disease; N18.32 Chronic kidney disease, stage 3b; R62.7 Adult failure to thrive; I25.2 Old myocardial infarction; K21.9 Gastro-esophageal reflux disease without esophagitis; N40.0 Benign prostatic hyperplasia without lower urinary tract symptoms; F41.9 Anxiety disorder, unspecified; F32.A Depression, unspecified; N40.1 Benign prostatic hyperplasia with lower urinary tract symptoms; R33.8 Other retention of urine; Z79.01 Long term (current) use of anticoagulants; Z79.82 Long term (current) use of aspirin; Z79.899 Other long term (current) drug therapy; W19.XXXA Unspecified fall, initial encounter
CPT/HCPCS: 36415; 70450; 71045; 73502; 73700; 80053; 81001; 84484; 85025; 85610; 93005; 96360; 97116; 97161; 99285; A9270; J3475; J7120; 93010; 96361; 96374; 99284; G0378; J3490

== ENCOUNTER 2023-08-09 12:42 | Emergency (ER) | payer MEDICARE, BC ==
[2023-08-09 13:01] VITALS: PULSE 60
[2023-08-09] MEDS ORDERED: Sodium Chloride 0.9% 10 ML Syringe FLUSH PRN (13:04)
[2023-08-09] MEDS ORDERED: Lactated Ringers 1,000 ML IV SCH (13:15)
[2023-08-09 14:02] LABS: BASOPHILS PERCENT AUTO 0.5 % (0.0-1.0); EOSINOPHILS ABSOLUTE AUTO 0.1 K/mm3 (0.0-0.4); EOSINOPHILS PERCENT AUTO 1.1 % (0.0-6.0); HEMATOCRIT 42.4 % (42.0-52.0); HEMOGLOBIN 14.8 gm/dl (14.0-18.0); IMMATURE GRAN ABSOLUTE AUTO 0.01 K/mm3 (0.00-0.05); IMMATURE GRAN PERCENT AUTO 0.2 % (0.0-0.4); LYMPHOCYTES ABSOLUTE AUTO 0.6 K/mm3 (1.0-4.8); LYMPHOCYTES PERCENT AUTO 9.3 % (24.0-44.0); MEAN CORPUSCULAR HEMOGLOBIN 30.6 pg (28.0-32.0); MEAN CORPUSCULAR HGB CONC 34.9 g/dl (32.0-36.0); MEAN CORPUSCULAR VOLUME 87.8 fl (83.0-99.0); MEAN PLATELET VOLUME 10.2 fl (9.4-12.4); MONOCYTES ABSOLUTE AUTO 0.5 K/mm3 (0.0-0.8); MONOCYTES PERCENT AUTO 8.9 % (0.0-8.0); NEUTROPHILS ABSOLUTE AUTO 4.9 K/mm3 (1.8-7.7); PLATELET COUNT,PLT 108 K/mm3 (150-400); RED BLOOD CELL COUNT 4.83 M/mm3 (4.52-5.90)
[2023-08-09 14:33] LABS: ALBUMIN 3.7 g/dl (3.4-5.0); ANION GAP 11.8 (5-15); BILIRUBIN TOTAL 0.8 mg/dL (0.2-1.0); BUN/CREATININE RATIO 12.7 (14-18); CALCIUM 8.9 mg/dL (8.5-10.1); CREATININE 1.5 mg/dL (0.7-1.3); EST CRCL DRUG DOSING (CG) 39.2 mL/min; POTASSIUM,K 3.8 mEq/L (3.5-5.1); PROTEIN TOTAL,TP 7.5 g/dl (6.4-8.2)
[2023-08-09 14:36] LABS: CORONAVIRUS COVID-19 NAA NEGATIVE (NEGATIVE); INFLUENZA A NAA NEGATIVE (NEGATIVE)
[2023-08-09 14:54] LABS: APPEARANCE,URINE CLEAR (Clear); BILIRUBIN,URINE NEGATIVE (Negative); COLOR,URINE YELLOW (Yellow); GLUCOSE,URINE NEGATIVE (Negative); KETONES,URINE NEGATIVE (Negative); LEUKOCYTE ESTERASE,URINE NEGATIVE (Negative); NITRITE,URINE NEGATIVE (Negative); OCCULT BLOOD,URINE NEGATIVE (Negative); PROTEIN,URINE NEGATIVE (Negative)
[2023-08-09 17:55] VITALS: BP 103/75
== END 2023-08-09 17:53 | disposition home or self-care (01) ==
LOC: JD.ED 12:42
DX: I49.8 Other specified cardiac arrhythmias (principal); R53.1 Weakness; I10 Essential (primary) hypertension; I25.10 Atherosclerotic heart disease of native coronary artery without angina pectoris; I25.2 Old myocardial infarction; Z20.822 Contact with and (suspected) exposure to COVID-19; Z79.82 Long term (current) use of aspirin; Z79.01 Long term (current) use of anticoagulants; Z79.899 Other long term (current) drug therapy
CPT/HCPCS: 0240U; 36415; 80053; 81003; 84484; 85025; 93005; 96360; 96361; 99285; J3490; J7120; 93010; 99282

== ENCOUNTER 2024-01-07 11:09 | Emergency (ER) | payer MEDICARE, BC ==
[2024-01-07 12:14] LABS: BASOPHILS PERCENT AUTO 0.5 % (0.0-1.0); EOSINOPHILS PERCENT AUTO 0.2 % (0.0-6.0); HEMATOCRIT 41.5 % (42.0-52.0); HEMOGLOBIN 14.1 gm/dl (14.0-18.0); IMMATURE GRAN ABSOLUTE AUTO 0.03 K/mm3 (0.00-0.05); IMMATURE GRAN PERCENT AUTO 0.5 % (0.0-0.4); LYMPHOCYTES ABSOLUTE AUTO 0.5 K/mm3 (1.0-4.8); LYMPHOCYTES PERCENT AUTO 8.3 % (24.0-44.0); MEAN CORPUSCULAR HEMOGLOBIN 30.3 pg (28.0-32.0); MEAN CORPUSCULAR VOLUME 89.1 fl (83.0-99.0); MONOCYTES ABSOLUTE AUTO 0.5 K/mm3 (0.0-0.8); MONOCYTES PERCENT AUTO 8.3 % (0.0-8.0); NEUTROPHILS ABSOLUTE AUTO 5.3 K/mm3 (1.8-7.7); NEUTROPHILS PERCENT AUTO 82.2 % (41.0-71.0); PLATELET COUNT,PLT 92 K/mm3 (150-400); RED BLOOD CELL COUNT 4.66 M/mm3 (4.52-5.90); WHITE BLOOD CELL COUNT,WBC 6.39 K/mm3 (3.9-11.3)
[2024-01-07 12:30] LABS: A/G RATIO 1.1 (1-2); ALANINE AMINOTRANSFERASE,ALT 48 U/L (16-63); ALBUMIN 3.7 g/dl (3.4-5.0); ALKALINE PHOSPHATASE 84 U/L (46-116); ANION GAP 12.1 (5-15); ASPARTATE AMNIOTRANSFERASE,AST 29 U/L (15-37); BILIRUBIN TOTAL 0.8 mg/dL (0.2-1.0); BLOOD UREA NITROGEN,BUN 23 mg/dL (7-18); BUN/CREATININE RATIO 17.7 (14-18); CALCIUM 8.9 mg/dL (8.5-10.1); CARBON DIOXIDE,CO2 28 mEq/L (21-32); CHLORIDE,CL 105 mEq/L (98-107); CREATININE 1.3 mg/dL (0.7-1.3); ESTIMATED GFR 55 mL/min (>60); GLUCOSE RANDOM 109 mg/dL (70-99); MAGNESIUM 1.8 mg/dL (1.8-2.4); POTASSIUM,K 4.1 mEq/L (3.5-5.1); PROTEIN TOTAL,TP 7.2 g/dl (6.4-8.2); SODIUM,NA 141 mEq/L (136-145); TROPONIN I HIGH SENSITIVITY 10 pg/mL (<=76)
[2024-01-07 12:32] LABS: C-REACTIVE PROTEIN < 0.05 mg/dL (<0.30)
[2024-01-07 12:34] LABS: SLIDE REVIEW ABNORMAL SMEAR
[2024-01-07 12:41] LABS: CORONAVIRUS COVID-19 NAA NEGATIVE (NEGATIVE); INFLUENZA A NAA NEGATIVE (NEGATIVE); RESPIRATORY SYNCYTIAL VIR NAA NEGATIVE (NEGATIVE)
[2024-01-07 13:20] LABS: APPEARANCE,URINE CLEAR (Clear); BILIRUBIN,URINE NEGATIVE (Negative); COLOR,URINE YELLOW (Yellow); GLUCOSE,URINE NEGATIVE (Negative); KETONES,URINE NEGATIVE (Negative); LEUKOCYTE ESTERASE,URINE NEGATIVE (Negative); NITRITE,URINE NEGATIVE (Negative); OCCULT BLOOD,URINE NEGATIVE (Negative); PH,URINE 6.5 (5.0-8.0); PROTEIN,URINE NEGATIVE (Negative); UROBILINOGEN,URINE 0.2 (0.2-1.0)
[2024-01-07] MEDS: Sodium Chloride 0.9% 10 ML Syringe FLUSH PRN (14:01)
[2024-01-07] MEDS: Sodium Chloride 0.9% 1,000 ML IV SCH (14:01)
[2024-01-07 17:15] VITALS: BP 146/72; PULSE 59
== END 2024-01-07 16:03 | disposition home or self-care (01) ==
LOC: JD.ED 11:09
DX: R55 Syncope and collapse (principal); I25.10 Atherosclerotic heart disease of native coronary artery without angina pectoris; I25.2 Old myocardial infarction; K21.9 Gastro-esophageal reflux disease without esophagitis; Z95.5 Presence of coronary angioplasty implant and graft; Z79.82 Long term (current) use of aspirin; Z79.01 Long term (current) use of anticoagulants; Z79.899 Other long term (current) drug therapy
CPT/HCPCS: 0241U; 36415; 70450; 80053; 81003; 83735; 84484; 85025; 86140; 93005; 96360; 96361; 99284; J3490; J7030

== ENCOUNTER 2024-12-23 11:12 | Emergency (ER) | payer MEDICARE, BC ==
[2024-12-23 11:35] VITALS: BP 154/77; PULSE 57
[2024-12-23] MEDS ORDERED: Naloxone 0.4 MG/ML SDV IVPUSH PRN (11:49)
[2024-12-23] MEDS: fentaNYL 100 MCG/2 ML SDV IM ONE (12:15)
[2024-12-23] MEDS: Acetaminophen/HYDROcodone 325-5 MG Tab PO ONE ×2 (15:36)
== END 2024-12-23 15:37 | disposition home or self-care (01) ==
LOC: JD.ED 11:12
DX: S76.011A Strain of muscle, fascia and tendon of right hip, initial encounter (principal); I25.10 Atherosclerotic heart disease of native coronary artery without angina pectoris; I25.2 Old myocardial infarction; Z79.899 Other long term (current) drug therapy; X58.XXXA Exposure to other specified factors, initial encounter; Y92.511 Restaurant or cafe as the place of occurrence of the external cause
CPT/HCPCS: 74176; 96372; 99283; J3010